=== PATIENT | female | born 1960 | race Caucasian/White ===

== ENCOUNTER → 2018-02-11 | Outpatient (CLI) | payer BC ==
--- NOTE | 2018-02-11 13:47 | Diagnostic Imaging Report ---
EXAM: Right Upper Quadrant Ultrasound INDICATION: \S\RUQ PAIN COMPARISON: None. TECHNIQUE: Transverse and longitudinal images of the right upper abdomen were obtained. FINDINGS: Liver: Size: 14.4 cm in the right midclavicular line, normal Appearance: Increased echogenicity, smooth contour Mass: No focal masses Gallbladder: Stones/Sludge: None Wall: 0.2 cm Appearance: No pericholecystic fluid or hydrops. Sonographic Gutierrez's Sign: Negative Bile Ducts: Intrahepatic Ducts: No dilatation Extrahepatic Ducts: Common bile duct measures 0.3 cm, no dilatation Pancreas: Visualized pancreas is unremarkable. Right Kidney: Size: 11 cm Echogenicity: Normal Parenchymal thickness: Normal Collecting system: No hydronephrosis Stones: None Cyst/Mass: None Vessels: Aorta: Visualized portions are normal Inferior Vena Cava: Visualized portions are normal Main Portal Vein: 0.8 cm, normal size with hepatopetal flow. Free Fluid: No ascites or pleural effusion IMPRESSION: Hepatic steatosis. Otherwise, unremarkable right upper quadrant ultrasound. Signed by: Dr. Prince Torres MD on 02/11/2018 1:44 PM
== END ==
LOC: US 12:00
PROVIDERS: ATTEND Surgery
DX: R10.11 Right upper quadrant pain (principal)
CPT/HCPCS: 76705

== ENCOUNTER → 2018-02-25 | Day surgery (SDC) | payer BC ==
[~2018-02-25] MED LIST: DULOXETINE PO; FENTANYL CITRATE/PF 100MCG/2 ML INJ ONE; KETAMINE HCL INJ 50 MG/ML 10 ML VIAL ONE; LEVOTHYROXINE150 MCG PO; MIDAZOLAM HCL 2 MG/2 ML VIAL ONE; PROPOFOL IV EMULSION 10 MG/ML 20 ML VIAL ONE
[2018-02-25 07:32] LABS: BASOPHILS % 0.1 % (0.0-1.0); HEMATOCRIT 42.3 % (34.2-44.1); HEMOGLOBIN 14.7 g/dL (12.0-16.0); LYMPHOCYTES # (AUTO) 2.5 (1.0-3.2); LYMPHOCYTES % 29.8 % (18.0-39.1); MEAN CORPUSCULAR HEMOGLOBIN 32.5 pg (28-32); MEAN CORPUSCULAR HGB CONC 34.8 g/dL (31-35); MEAN CORPUSCULAR VOLUME 93.6 fL (81-99); MONOCYTES # (AUTO) 0.4 (0.2-0.8); MONOCYTES % 5.2 % (4.4-11.3); NEUTROPHILS # (AUTO) 5.3 (2.1-6.9); NEUTROPHILS % 64.5 % (38.7-80.0); PLATELET COUNT 132 x10e3/uL (140-360); RED BLOOD COUNT 4.52 x10e6/uL (3.6-5.1); RED CELL DISTRIBUTION WIDTH 12.8 % (11.7-14.4)
[2018-02-25 07:50] LABS: ANION GAP 13.7 mmol/L (8-16); BLOOD UREA NITROGEN 10 mg/dL (7-26); BUN/CREATININE RATIO 11 (6-25); CALCIUM 9.4 mg/dL (8.4-10.2); CARBON DIOXIDE 24 mmol/L (22-29); CHLORIDE 106 mmol/L (98-107); CREATININE, SERUM 0.88 mg/dL (0.57-1.11); EST GLOMERULAR FILTRATION RATE > 60 ML/MIN (60-); GLUCOSE 113 mg/dL (74-118); POTASSIUM 3.7 mmol/L (3.5-5.1); SODIUM 140 mmol/L (136-145)
[2018-02-25 10:45] VITALS: BP 128/65
== END | disposition home or self-care (01) ==
LOC: OR 05:57
PROVIDERS: ATTEND Surgery
DX: K29.50 Unspecified chronic gastritis without bleeding (principal); K22.8 Other specified diseases of esophagus; K21.0 Gastro-esophageal reflux disease with esophagitis; I10 Essential (primary) hypertension; M06.9 Rheumatoid arthritis, unspecified; M19.90 Unspecified osteoarthritis, unspecified site; E03.9 Hypothyroidism, unspecified; G47.33 Obstructive sleep apnea (adult) (pediatric); Z91.19 Patient's noncompliance with other medical treatment and regimen
CPT/HCPCS: 36415; 43239; 80048; 85025; 88305; 88312; 93005; J2250

== ENCOUNTER → 2019-03-08 | Day surgery (SDC) | payer BC ==
[~2019-03-08] MED LIST changes: +HYOSCYAMINE 0.125 MG TAB ONE; +METFORMIN HCL500 MG PO; +PANTOPRAZOLE SO40 MG PO; -PROPOFOL IV EMULSION 10 MG/ML 20 ML VIAL ONE; +PROPOFOL IV EMULSION 10 MG/ML 50 ML VIAL ONE
--- OUTSIDE RECORDS SUMMARY | 2019-03-08 12:04 | XMS REPORT | Clinical Summary ---
Author Author [facility] Organization [facility] Address Unknown Phone Unavailable Care Team Providers Care Gas Singer Name Role Phone Kahlil Jones DO PCP Allergies Comments Active Allergy Reactions Severity Noted Date Codeine Sulfate Itching, Rash Low 05/21/2017 Hydrocodone-Acetaminophen Itching, Rash Low 05/21/2017 Medications End Date Status Medication Sig Dispensed Refills Start Date Active LEVOTHYROXINE SODIUM Take by 0 (LEVOXYL ORAL) mouth. Active levothyroxine (SYNTHROID, TAKE 1 TABLET 0 LEVOXYL) 150 mcg tablet BY MOUTH 7 EVERY DAY ON AN EMPTY STOMACH IN THE MORNING Active DULoxetine (CYMBALTA) 30 Take 30 mg by 2 MG capsule mouth 2 (two) 7 times a day. Active Problems Not on file Family History Medical History Relation Name Comments Diabetes Brother Hypertension Brother Breast cancer Cousin Colon cancer Father Breast cancer Maternal Aunt Cancer Mother Thyroid disease Mother Diabetes Paternal Grandmother Relation Name Status Comments Brother Cousin Father Maternal Aunt Mother breast cancer Paternal Grandmother Social History Date Tobacco Use Types Packs/Day Years Used Never Smoker Smokeless Tobacco: Never Used Drinks/Week oz/Week Comments Alcohol Use Yes Sex Assigned at Date Recorded Not on file Industry Job Start Date Occupation Not on file Not on file Not on file Travel End Travel History Travel Start No recent travel history available. Last Filed Vital Signs Not on file Plan of Treatment Health Maintenance Due Date Last Done Comments CERVICAL CANCER SCREENING 08/17/2007 08/16/2004 SHINGLES VACCINES (#1) 2008 COLONOSCOPY SCREENING 06/18/2017 06/18/2007 INFLUENZA VACCINE 01/16/2019 BREAST CANCER SCREENING 06/05/2019 06/05/2017, 09/16/2010 Results Not on fileafter 03/07/2018 Insurance Type Payer Benefit Subscriber ID Effective Phone Address Plan / Dates Group PPO BCBS BCBS OUT xxxxxxxxxxxx 2015-P OF STATE resent Advance Directives For more information, please contact: [phone] Patient Vat Skimmer Explanation Type Date Recorded Advance Directives, Living Will and Medical Power of Community Representative
[2019-03-08 17:35] VITALS: BP 117/82
--- NOTE | 2019-03-09 01:52 | Operative Report ---
DATE OF PROCEDURE: 03/08/2019 SURGEON: Cuco Archer MD PROCEDURE: Colonoscopy with polypectomy. INDICATIONS FOR COLONOSCOPY: Surveillance colonoscopy, personal history of colon polyps, father with colon cancer. MEDICATIONS: The patient was done under MAC, please see anesthesiologist's note. PROCEDURE IN DETAIL: With the patient in left lateral decubitus position, a flexible fiberoptic Olympus colonoscope was inserted into the rectum with ease and advanced all the way to the cecum. Mucosa overlying the cecum appeared to be within normal limits. Two polyps were snared from the ascending colon. Two polyps were snared. One polyp was hot biopsied from the transverse colon. Two polyps were snared from the descending colon. One polyp was hot biopsied. One polyp was snared from the sigmoid colon. One polyp was hot biopsied from the rectum. The scope was then retroflexed into the distal rectum and small internal hemorrhoids were noted, none of which was actively bleeding. The scope was then straightened out and it was subsequently withdrawn and the patient tolerated procedure well. IMPRESSION: 1. Ascending colon polyps x2, snared. 2. Transverse colon polyps x3, two snared and one hot biopsied. 3. Descending colon polyps x2, snared. 4. Sigmoid colon polyps x2, one snared and one hot biopsied. 5. Rectal polyp, hot biopsied. 6. Internal hemorrhoids, none actively bleeding. PLAN: Follow up histology. Initiate high-fiber, low-fat diet. Initiate high-fiber supplement. The patient might benefit from a followup colonoscopy in one to two years. A total of 10 polyps were removed. Cuco Archer MD [facility] [place] /[id number] cc: Kahlil Jones DO
== END | disposition home or self-care (01) ==
LOC: OR 11:40
PROVIDERS: ATTEND Internal Medicine Gastroenterology
DX: K59.00 Constipation, unspecified (principal); D12.2 Benign neoplasm of ascending colon; D12.3 Benign neoplasm of transverse colon; D12.4 Benign neoplasm of descending colon; K62.1 Rectal polyp; K64.8 Other hemorrhoids; K21.9 Gastro-esophageal reflux disease without esophagitis; E11.9 Type 2 diabetes mellitus without complications; G47.33 Obstructive sleep apnea (adult) (pediatric); Z01.810 Encounter for preprocedural cardiovascular examination; Z68.31 Body mass index [BMI] 31.0-31.9, adult
CPT/HCPCS: 36415; 45384; 45385; 82948; 93005; J2250; J2704; J3010

== ENCOUNTER 2023-07-18 23:58 | Inpatient (IN) | payer OTHER ==
[~2023-07-18] VITALS: Ht 165.1 cm; Wt 81.2 kg
[~2023-07-18 23:58] MED LIST changes: +ATORVASTATIN CA20 MG PO; -FENTANYL CITRATE/PF 100MCG/2 ML INJ ONE; -HYOSCYAMINE 0.125 MG TAB ONE; -KETAMINE HCL INJ 50 MG/ML 10 ML VIAL ONE; -MIDAZOLAM HCL 2 MG/2 ML VIAL ONE; -PROPOFOL IV EMULSION 10 MG/ML 50 ML VIAL ONE; +VITAMIN D31250 MCG PO
[2023-07-19] MEDS ORDERED: SODIUM CHLORIDE 0.9% 1000ML 1,000 ML IV STA (00:04)
[2023-07-19] MEDS: ACETAMINOPHEN 325 MG TAB PO STA (00:32)
[2023-07-19] MEDS: SODIUM CHLORIDE 0.9% 1000ML 1,000 ML IV STA ×2 (00:32→02:53)
[2023-07-19 00:38] LABS: BASOPHILS % 0.1 % (0.0-1.0); HEMATOCRIT 43.2 % (34.2-44.1); HEMOGLOBIN 14.9 g/dL (12.0-16.0); LYMPHOCYTES # (AUTO) 1.6 (1.0-3.2); LYMPHOCYTES % 15.1 % (18.0-39.1); MEAN CORPUSCULAR HEMOGLOBIN 32.5 pg (28-32); MEAN CORPUSCULAR HGB CONC 34.5 g/dL (31-35); MEAN CORPUSCULAR VOLUME 94.1 fL (81-99); MONOCYTES # (AUTO) 0.5 (0.2-0.8); MONOCYTES % 4.7 % (4.4-11.3); NEUTROPHILS # (AUTO) 8.5 (2.1-6.9); NEUTROPHILS % 79.9 % (38.7-80.0); PLATELET COUNT 121 x10e3/uL (140-360); RED BLOOD COUNT 4.59 x10e6/uL (3.6-5.1); WHITE BLOOD COUNT 10.61 x10e3/uL (4.8-10.8)
[2023-07-19 00:51] LABS: ALBUMIN 3.9 g/dL (3.5-5.0); ANION GAP 15.4 mmol/L (8-16); BILIRUBIN,TOTAL 0.8 mg/dL (0.2-1.2); CALCIUM 9.1 mg/dL (8.4-10.2); CREATINE KINASE 42 IU/L (29-168); CREATININE, SERUM 1.14 mg/dL (0.57-1.11); POTASSIUM 4.4 mmol/L (3.5-5.1); TOTAL PROTEIN 7.7 g/dL (6.5-8.1)
[2023-07-19 00:59] LABS: TROPONIN I < 0.001 ng/mL (0-0.300)
[2023-07-19 01:23] LABS: ABG HCO3 19 mmol/L (22-26); ABG PCO2 33 mmHg (35-45); ABG PH 7.37 (7.35-7.45); ABG PO2 87 mmHg (80-105); ABG TCO2 20
[2023-07-19] MEDS ORDERED: IOPAMIDOL 370 MG/ML 100 ML INFUS..BTL INJ ONE (01:27)
[2023-07-19 01:46] LABS: CLARITY,URINE CLEAR (CLEAR); COLOR,URINE YELLOW (YELLOW); LEUKOCYTE ESTERASE ,URINE NEGATIVE (NEGATIVE); NITRITE,URINE NEGATIVE (NEGATIVE); PH,URINE 5.5 (5 - 7); PROTEIN,URINE DIPSTICK NEGATIVE (NEGATIVE)
[2023-07-19 01:47] LABS: BILIRUBIN,URINE NEGATIVE (NEGATIVE); GLUCOSE, URINE >=1000 (NEGATIVE); KETONES,URINE TRACE (NEGATIVE); URINE UROBILINOGEN 0.2 mg/dL (0.2 - 1)
[2023-07-19 01:53] LABS: BACTERIA,URINE MODERATE /HPF; EPITHELIAL CELLS,URINE MODERATE /LPF; WBC,URINE (MAN) 21-50 /HPF (0-5); YEAST,URINE FEW
[2023-07-19] MEDS: ONDANSETRON HCL INJ 2MG/ML 2ML 2 MG/ML VIAL IV STA (02:42)
[2023-07-19] MEDS: Morphine 4mg INJECTION 4 MG/ML INJ IV STA (02:43)
[2023-07-19] MEDS: INSULIN REGULAR, HUMAN 100 UNIT/1 ML IV STA (02:52)
[2023-07-19] MEDS: SODIUM CHLORIDE 0.9% 1000ML 1,000 ML IV SCH (04:41)
[2023-07-19 06:40] LABS: BASOPHILS % 0.1 % (0.0-1.0); HEMATOCRIT 37.2 % (34.2-44.1); HEMOGLOBIN 12.5 g/dL (12.0-16.0); LYMPHOCYTES % 20.1 % (18.0-39.1); MEAN CORPUSCULAR HEMOGLOBIN 31.8 pg (28-32); MEAN CORPUSCULAR HGB CONC 33.6 g/dL (31-35); MEAN CORPUSCULAR VOLUME 94.7 fL (81-99); MONOCYTES # (AUTO) 0.6 (0.2-0.8); MONOCYTES % 5.7 % (4.4-11.3); NEUTROPHILS # (AUTO) 7.4 (2.1-6.9); NEUTROPHILS % 73.9 % (38.7-80.0); PLATELET COUNT 95 x10e3/uL (140-360); RED BLOOD COUNT 3.93 x10e6/uL (3.6-5.1); WHITE BLOOD COUNT 10.03 x10e3/uL (4.8-10.8)
[2023-07-19 06:48] LABS: CREATINE KINASE 30 IU/L (29-168)
[2023-07-19 06:56] LABS: TROPONIN I < 0.001 ng/mL (0-0.300)
[2023-07-19 07:08] LABS: ALBUMIN 3.1 g/dL (3.5-5.0); ANION GAP 12.2 mmol/L (8-16); BILIRUBIN,TOTAL 0.8 mg/dL (0.2-1.2); CALCIUM 8.2 mg/dL (8.4-10.2); CREATININE, SERUM 0.89 mg/dL (0.57-1.11); POTASSIUM 4.2 mmol/L (3.5-5.1); TOTAL PROTEIN 6.2 g/dL (6.5-8.1)
[2023-07-19] MEDS: Morphine 4mg INJECTION 4 MG/ML INJ IV PRN (07:58)
[2023-07-19] MEDS: ONDANSETRON HCL INJ 2MG/ML 2ML 2 MG/ML VIAL IV PRN (07:58)
[2023-07-19] MEDS ORDERED: DEXTROSE 50% SYRINGE 50 ML IV PRN (08:00)
[2023-07-19] MEDS: INSULIN REGULAR, HUMAN 100 UNIT/1 ML SQ SCH (08:17)
[2023-07-19 15:40] LABS: TROPONIN I 0.001 ng/mL (0-0.300)
[2023-07-19 20:00] VITALS: BP 133/74; PULSE 99; RESP 18; TEMP 97.7; O2SAT 98
[2023-07-19 21:00] VITALS: BP 133/74; PULSE 99; RESP 18; TEMP 97.7; O2SAT 98
[2023-07-19] MEDS: ATORVASTATIN 40 MG TAB PO SCH (21:34)
[2023-07-20] VITALS (8 sets, daily range): BP systolic 114–130; BP diastolic 61–77; PULSE 72–92; RESP 17–19; TEMP 97.7–98.6; O2SAT 97–100
[2023-07-20 05:44] LABS: HEMATOCRIT 36.4 % (34.2-44.1); HEMOGLOBIN 12.5 g/dL (12.0-16.0); MEAN CORPUSCULAR HEMOGLOBIN 31.9 pg (28-32); MEAN CORPUSCULAR HGB CONC 34.3 g/dL (31-35); MEAN CORPUSCULAR VOLUME 92.9 fL (81-99); MONOCYTES # (AUTO) 0.4 (0.2-0.8); MONOCYTES % 7.1 % (4.4-11.3); NEUTROPHILS # (AUTO) 2.5 (2.1-6.9); NEUTROPHILS % 51.5 % (38.7-80.0); PLATELET COUNT 85 x10e3/uL (140-360); RED BLOOD COUNT 3.92 x10e6/uL (3.6-5.1); RED CELL DISTRIBUTION WIDTH 12.2 % (11.7-14.4); WHITE BLOOD COUNT 4.93 x10e3/uL (4.8-10.8)
[2023-07-20 06:09] LABS: ALBUMIN 2.9 g/dL (3.5-5.0); ALBUMIN/GLOBULIN RATIO 0.9 (0.8-2.0); ANION GAP 11.9 mmol/L (8-16); BILIRUBIN,TOTAL 0.7 mg/dL (0.2-1.2); CALCIUM 8.3 mg/dL (8.4-10.2); CREATININE, SERUM 0.79 mg/dL (0.57-1.11); POTASSIUM 3.9 mmol/L (3.5-5.1); TOTAL PROTEIN 6.3 g/dL (6.5-8.1)
[2023-07-20] MEDS: LEVOTHYROXINE SODIUM 100 MCG TAB PO SCH (06:10)
[2023-07-20] MEDS: LEVOTHYROXINE SODIUM 75 MCG TAB PO SCH (06:11)
[2023-07-20] MEDS: ACETAMINOPHEN 325 MG TAB PO PRN (08:26)
[2023-07-20] MEDS: CEPHALEXIN 500 MG CAP PO SCH (14:48)
[2023-07-20] MEDS: METFORMIN HCL 500 MG TAB PO SCH (16:57)
[2023-07-21 00:06] VITALS: BP 117/68; PULSE 86; RESP 18; TEMP 97.8; O2SAT 96
[2023-07-21 00:10] LABS: RHEUMATOID FACTOR 10.2 IU/mL (<14.0)
[2023-07-21 06:03] VITALS: BP 147/73; PULSE 101; RESP 16; TEMP 98; O2SAT 97
[2023-07-21 07:31] VITALS: BP 138/82; PULSE 87; RESP 16; TEMP 97.6; O2SAT 98
[2023-07-21 07:53] VITALS: BP 138/82; PULSE 87; RESP 16; TEMP 97.6; O2SAT 98
[2023-07-21] MEDS ORDERED: METFORMIN HCL500 M2 PO (14:46)
[2023-07-21 14:48] VITALS: BP 138/82; PULSE 87; RESP 16; TEMP 97.6; O2SAT 98
== END 2023-07-21 15:06 | disposition home or self-care (01) | DRG 554 ==
LOC: ER 07-19 → ERHOLD 07-19 03:52 → MED/SURG 07-19 13:50 → OBSVTOIN 07-19 15:17
PROVIDERS: ADMIT Internal Medicine; ATTEND Internal Medicine
PROC: 4A033R1 Measurement of Arterial Saturation, Peripheral, Percutaneous Approach (ICD-10-PCS; principal; 2023-07-19)
DX: M19.90 Unspecified osteoarthritis, unspecified site (principal); E03.9 Hypothyroidism, unspecified; E78.00 Pure hypercholesterolemia, unspecified; Z20.822 Contact with and (suspected) exposure to COVID-19; R74.01 Elevation of levels of liver transaminase levels; E11.9 Type 2 diabetes mellitus without complications; Z79.4 Long term (current) use of insulin; Z79.899 Other long term (current) drug therapy; Z79.890 Hormone replacement therapy
CPT/HCPCS: 36415; 36600; 70496; 70498; 70551; 71045; 80053; 81001; 82010; 82550; 82805; 82948; 83036; 83605; 83690; 83880; 84484; 84550; 85025; 86039; 86200; 86431; 87040; 87086; 93005; 93306; 99252; 99284; J2270; J2405; J2543; J7030; Q9967; U0002